=== PATIENT | female | born 1960 | race Caucasian/White ===

== ENCOUNTER 2018-07-12 21:37 | Emergency (ER) | payer BC ==
[~2018-07-12] VITALS: Ht 162.6 cm; Wt 58.1 kg
--- NOTE | 2018-07-12 21:50 | NUR ---
Came in to ER c/o dizziness x several weeks. Patient YANAO. ELIZA noted.
--- NOTE | 2018-07-12 23:00 | NUR ---
Seen and evaluated by Dr. Parada.
--- NOTE | 2018-07-12 23:08 | NUR ---
Labs drawn by [facility].
[2018-07-12 23:17] LABS: BASOPHILS % (AUTO) 0.4 % (0.0-2.0); EOSINOPHILS # (AUTO) 0.1 K/uL (0.0-0.7); EOSINOPHILS % (AUTO) 1.4 % (0.0-7.0); HEMATOCRIT 40.5 % (31.2-41.9); HEMOGLOBIN 13.6 g/dL (10.9-14.3); LYMPHOCYTES # (AUTO) 1.7 K/uL (20.0-40.0); LYMPHOCYTES % (AUTO) 34.6 % (20.5-51.5); MEAN CORPUSCULAR HEMOGLOBIN 31.2 uug (24.7-32.8); MEAN CORPUSCULAR HGB CONC 34 g/dL (32.3-35.6); MEAN CORPUSCULAR VOLUME 93.1 fL (75.5-95.3); MONOCYTES # (AUTO) 0.3 K/uL (2.0-10.0); MONOCYTES % (AUTO) 6.7 % (0.0-11.0); NEUTROPHILS # (AUTO) 2.8 K/uL (1.8-8.9); NEUTROPHILS % (AUTO) 56.9 % (38.5-71.5); PLATELET COUNT (AUTO) 199 K/uL (179-408); RED BLOOD CELL COUNT(AUTO) 4.35 MIL/uL (3.63-4.92); WHITE BLOOD COUNT (AUTO) 4.9 K/uL (3.8-11.8)
[2018-07-12 23:23] LABS: CREATININE 0.5 mg/dL (0.6-1.3); POTASSIUM 3.7 mmol/L (3.5-5.1)
[2018-07-12 23:35] LABS: BILIRUBIN,DIRECT 0.1 mg/dL (0.0-0.2); BILIRUBIN,TOTAL 0.3 mg/dL (0.2-1.0); TOTAL PROTEIN, SERUM 7.3 g/dL (6.4-8.2)
--- NOTE | 2018-07-12 23:55 | NUR ---
Dr. Parada verbally DC patient with [facility]; verbalizes understanding of instructions. Patient stable.
[2018-07-13 00:19] VITALS: BP 129/74
== END 2018-07-12 23:55 | disposition home or self-care (01) ==
LOC: ER 21:39
DX: Z00.00 Encounter for general adult medical examination without abnormal findings (principal); R53.1 Weakness
CPT/HCPCS: 36415; 83605; 83690; 85025; A4663